=== PATIENT | male | born 1950 | race Caucasian/White ===

== ENCOUNTER 2016-12-11 07:54 | Day surgery (SDC) | payer OTHER, MEDICARE ==
[2016-12-05 11:50] VITALS: BMI 24.4
[2016-12-11] MEDS ORDERED: PROPOFOL 20 ML ONE ×2 (08:04)
[2016-12-11] MEDS ORDERED: LIDOCAINE HCL/PF 2% SDV 5ML VIAL ONE (08:05)
[2016-12-11 09:29] VITALS: TEMP 97.5
[2016-12-11 09:51] VITALS: BP 120/76; PULSE 57
--- NOTE | 2016-12-12 18:15 | PATH ---
Surgical Pathology Report Patient Name: ILIANA RICHMOND [facility]. Rec. #: [id number] /Age/Gender: 1950 (Age: 66) / M Account: [id number] Location: Taken: 12/11/2016 Received: 12/11/2016 Reported: 12/12/2016 Physicians: Angelo Khanna M.D. Specimen(s) Received A: BX ANTRUM B: GASTRIC POLYP Clinical History GERD Gastritis, gastric polyp Final Diagnosis A. ANTRUM, BIOPSY: MILD CHRONIC GASTRITIS. IMMUNOSTAIN IS NEGATIVE FOR H. PYLORI ORGANISMS. B. GASTRIC POLYP, BIOPSY: POLYPOID FRAGMENT OF GASTRIC BODY-TYPE MUCOSA SHOWING MILD CHRONIC GASTRITIS. IMMUNOSTAIN IS NEGATIVE FOR H. PYLORI ORGANISMS Electronically Signed Elinor Mahan M.D. Gross Description A. Received in formalin, labeled "antrum" are 2 heart, irregular portions of soft tissue averaging 0.3 cm. in greatest dimension. The specimens are submitted in toto in one cassette. B. Received in formalin, labeled "gastric polyp" is a heart, polypoid portion of soft tissue measuring 0.5 cm. in greatest dimension. The specimen is submitted in toto in one cassette. 12/11/2016 saudi12/11/2016
== END 2016-12-11 10:05 | disposition home or self-care (01) ==
LOC: FASU-ENDO 07:54
PROVIDERS: ATTEND Internal Medicine Gastroenterology
PROC: 0DB68ZX Excision of Stomach, Via Natural or Artificial Opening Endoscopic, Diagnostic (ICD-10-PCS; principal; 2016-12-11 08:53)
PROC: 0DB98ZX Excision of Duodenum, Via Natural or Artificial Opening Endoscopic, Diagnostic (ICD-10-PCS; 2016-12-11 08:53)
PROC: 0DB68ZX Excision of Stomach, Via Natural or Artificial Opening Endoscopic, Diagnostic (ICD-10-PCS; 2016-12-11 08:53)
DX: Z87.19 Personal history of other diseases of the digestive system (principal); K29.50 Unspecified chronic gastritis without bleeding; K31.7 Polyp of stomach and duodenum
CPT/HCPCS: 88305-TC; 88342-TC

== ENCOUNTER 2019-01-24 17:40 | Inpatient (IN) | payer OTHER, MEDICARE ==
[2019-01-24 18:29] LABS: BASO % 1.1 % (0-2.0); EOS % 0.2 % (0-4.5); HEMATOCRIT 47.6 % (35.4-49); HEMOGLOBIN 16.2 GM/dl (11.7-16.9); LYMPH % 14.7 % (8-40); MCH 30.4 pg (25.7-33.7); MCHC 34.1 g/dl (32.0-35.9); MEAN CELL VOLUME 89.1 fl (80-96); MEAN PLT VOLUME 9.1 fl (7.5-11.1); MONO % 4.1 % (3.8-10.2); NEUT % 79.9 % (42.8-82.8); PLATELET COUNT 139 K/MM3 (134-434); RBC 5.34 M/mm3 (4.00-5.60); RDW 12.9 % (11.9-15.9)
--- NOTE | 2019-01-24 18:32 | PDOC ---
Attending Attestation - Resident Resident Name: TariqEugene - ED Attending Attestation I have performed the following: I have examined & evaluated the patient, The case was reviewed & discussed with the resident, I agree w/resident's findings & plan, Exceptions are as noted - HPI HPI: 01/24/19 18:28 68 years old with past medical history significant for GERD presents to the emergency department with 3-hour history of substernal chest discomfort. Patient states he bent down when he stood up began to feel substernal chest pressure 3 out of 10 mild diaphoresis pain radiates slightly to his back it is not pleuritic does not radiate to jaw or shoulder is now persistent constant with no exacerbating relieving factors with no history of prior. No smoking history no family history no history of cancer recent surgery or travel no PE or DVT history symptoms are mild persistent constant with no exacerbating or alleviating factors. - Physicial Exam PE: 01/24/19 18:29 Vitals: Triage Vital signs reviewed General Appearance: No acute distress, well nourished well developed, Head: Atraumatic, Cardiac: Regular rate and rhythym, no murmurs, no rubs, no gallops, Lungs: Clear to auscultation bilateral, good air movement bilaterally, Abdomen: Soft, non distended, normal bowel sounds, non tender to palpation Extremities: Full range of motion to all extremities, no cyanosis, clubbing, or edema Skin: Warm and dry, no rashes or lesions, no rash, no petechiae Psych: Normal mood, normal affect - Medical Decision Making 01/24/19 18:30 68 years old with substernal chest discomfort EKG performed at 1747 demonstrates normal sinus rhythm [address] elevations or T wave inversions occasional PVCs We will check labs chest x-ray troponin observe and reassess 01/24/19 18:58 Re-evaluation patient's pain feels better almost completely resolved his heart score is 3 We will check a second troponin and treat with Pepcid Maalox observe if patient' s pain worsens patient can be observed overnight Dr. Hood to follow-up labs and dispo patient 01/25/19 14:54 Heart Score/ECG Review - History History: Moderately suspicious - Electrocardiogram EKG: Normal - Age Age: >/= 65 - Risk Factors Based on the list above the patient has:: No risk factors known - Troponin Troponin: </= normal limit - Score Heart Score - Total: 3
[2019-01-24 18:38] LABS: BILIRUBIN,TOTAL 1.4 mg/dl (0.2-1); POTASSIUM 4.1 mmol/L (3.5-5.1); TOT PROT 6.4 g/dl (6.4-8.2)
--- NOTE | 2019-01-24 18:52 | PDOC ---
History of Present Illness - General Chief Complaint: Chest Pain Stated Complaint: chest pain Time Seen by Provider: 01/24/19 17:41 - History of Present Illness Initial Comments: 01/24/19 18:45 68m with pmh of GERD presents with 2 hours of sternal chest pressure 3/10, dull , with some b/l radiation to the back. Never had this kind of pain before. [place] the pain as he bent over to grab something. Was not exerting himself. No SOB, no fever, nausea, vomiting. Seems comfortable. 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 RT) Cardiac Disorders: No CVA: No COPD: No CHF: No Dementia: No Diabetes: No GI Disorders: No (MOTHER DX WITH COLON CA AT 83,3 YRS AGO) Disorders: No HTN: No Hypercholesterolemia: No Liver Disease: No Seizures: No Thyroid Disease: No - Surgical History Abdominal Surgery: No Appendectomy: No Cardiac Surgery: No Cholecystectomy: No Lung Surgery: No Neurologic Surgery: No Orthopedic Surgery: Yes (LARGE TOE JOINT KENDAL) - Psycho Social/Smoking Cessation Hx Smoking History: Never smoked Have you smoked in the past 12 months: No Information on smoking cessation initiated: No Hx Alcohol Use: No Drug/Substance Use Hx: No Substance Use Type: Alcohol Cardiac Specific PMH - Complaint Specific PMHX Pacemaker: No Review of Systems - Review of Systems Able to Perform ROS?: Yes Is the patient limited Surinamese proficient: No Constitutional: No: Symptoms Reported HEENTM: No: Symptoms Reported Respiratory: No: Symptoms reported Cardiac (ROS): Yes: See HPI ABD/GI: No: Symptoms Reported : No: Symptoms Reported Musculoskeletal: No: Symptoms Reported Integumentary: No: Symptoms Reported Neurological: No: Symptoms reported All Other Systems: Reviewed and Negative *Physical Exam - Vital Signs Last Vital Signs Temp Pulse Resp BP Pulse Ox 98.5 F 107 H 20 148/95 99 01/24/19 17:41 01/24/19 17:41 01/24/19 17:41 01/24/19 17:41 01/24/19 17:41 - Physical Exam General Appearance: Yes: Nourished, Appropriately Dressed. No: Apparent Distress HEENT: positive: EOMI, CHALO, Normal ENT Inspection Respiratory/Chest: positive: Lungs Clear, Normal Breath Sounds. negative: Chest Tender, Respiratory Distress Cardiovascular: positive: Regular Rhythm, Regular Rate, S1, S2 Gastrointestinal/Abdominal: positive: Normal Bowel Sounds, Flat, Soft. negative : Tender Extremity: positive: Normal Capillary Refill, Normal Inspection, Normal Range of Motion Integumentary: positive: Normal Color, Dry, Warm Heart Score/ECG Review - History History: Moderately suspicious - Electrocardiogram EKG: Normal - Age Age: >/= 65 - Risk Factors Risk Factors Heart Score: No Hx Hypercholesterolemia, No Hx Hypertension, No Hx Diabetes, No Smoking History, No Positive family hx of cardiac disease, No Hx Obesity Based on the list above the patient has:: No risk factors known - Troponin Troponin: </= normal limit - Score Heart Score - Total: 3 ED Treatment Course - LABORATORY CBC & Chemistry Diagram: 01/24/19 18:15 01/24/19 18:15 - ADDITIONAL ORDERS Additional order review: Laboratory Results 01/24/19 18:15 Sodium 141 Potassium 4.1 Chloride 106 Carbon Dioxide 23 Anion Gap 12 BUN 19.0 H Creatinine 1.0 Est GFR (CKD-EPI)AfAm 87.99 Est GFR (CKD-EPI)NonAf 75.92 Random Glucose 164 H Calcium 9.0 Total Bilirubin 1.4 H AST 37 ALT 36 Alkaline Phosphatase 93 Total Protein 6.4 Albumin 4.0 01/24/19 18:15 RBC 5.34 MCV 89.1 MCHC 34.1 RDW 12.9 MPV 9.1 Neutrophils % 79.9 Lymphocytes % 14.7 Monocytes % 4.1 Eosinophils % 0.2 Basophils % 1.1 Medical Decision Making - Medical Decision Making 01/24/19 18:50 68m with no pmh presents with dull chest pain sternal. Will check EKGm cxr and labs to r/o [place], dissection. Low suspicion for PE as the patient's we'll score is zero. Tachycardia resolved with fluids. Patient agreeable with second set of trop q3h. Explained the risks and benefits of that versus staying overnight for observation. 01/24/19 19:01 Patient signed out to Dr. Jimenez Discharge - Discharge Information Problems reviewed: Yes Clinical Impression/Diagnosis: Chest pain - Follow up/Referral - Patient Discharge Instructions - Post Discharge Activity
[2019-01-24] MEDS ORDERED: FAMOTIDINE 20 MG/50 ML IVPB 20 MG/50 ML MG IVPB ONE ×2 (19:00→19:17)
[2019-01-24] MEDS ORDERED: METOCLOPRAMIDE HCL INJECTION 10 MG/2 ML VIAL IVPUSH ONE (19:00)
[2019-01-24] MEDS ORDERED: MAG HYDROX/AL HYDROX/SIMETH 30 ML UNIT-DOSE CUP PO ONE (19:00)
[2019-01-24] MEDS ORDERED: METOCLOPRAMIDE HCL INJECTION 10 MG/2 ML VIAL ONE (19:17)
[2019-01-24] MEDS ORDERED: MAG HYDROX/AL HYDROX/SIMETH 30 ML UNIT-DOSE CUP ONE (19:17)
--- NOTE | 2019-01-24 21:27 | PDOC ---
*Physical Exam - Vital Signs Last Vital Signs Temp Pulse Resp BP Pulse Ox 98.5 F 76 16 106/57 L 98 01/24/19 17:41 01/24/19 20:09 01/24/19 20:09 01/24/19 20:09 01/24/19 20:09 ED Treatment Course - LABORATORY CBC & Chemistry Diagram: 01/24/19 18:15 01/24/19 18:15 - ADDITIONAL ORDERS Additional order review: Laboratory Results 01/24/19 01/24/19 01/24/19 20:40 18:15 18:15 Sodium 141 Potassium 4.1 Chloride 106 Carbon Dioxide 23 Anion Gap 12 BUN 19.0 H Creatinine 1.0 Est GFR (CKD-EPI)AfAm 87.99 Est GFR (CKD-EPI)NonAf 75.92 Random Glucose 164 H Calcium 9.0 Total Bilirubin 1.4 H AST 37 ALT 36 Alkaline Phosphatase 93 Troponin I 0.07 H < 0.03 Total Protein 6.4 Albumin 4.0 01/24/19 18:15 RBC 5.34 MCV 89.1 MCHC 34.1 RDW 12.9 MPV 9.1 Neutrophils % 79.9 Lymphocytes % 14.7 Monocytes % 4.1 Eosinophils % 0.2 Basophils % 1.1 - Medications Given in the ED: ED Medications Discontinued Medications Generic Name Dose Route Start Last Admin Trade Name Nikolaiq PRN Reason Stop Dose Admin Al Hydroxide/Mg Hydroxide 30 ml 01/24/19 19:00 01/24/19 19:22 Mylanta Oral Suspension - PO 01/24/19 19:01 30 ml ONCE ONE Administration Famotidine/Sodium Chloride 20 mg in 50 mls @ 100 mls/hr 01/24/19 19:00 19:22 Pepcid 20 Mg Premixed Ivpb - IVPB 01/24/19 19:29 100 mls/hr ONCE ONE Administration Metoclopramide HCl 10 mg 01/24/19 19:00 01/24/19 19:28 Reglan Injection - IVPUSH 01/24/19 19:01 10 mg ONCE ONE Administration Medical Decision Making - Medical Decision Making 01/24/19 21:20 Care of this patient received from Patient substernal pain states that he has no further recurrence of his substernal pain or lightheadedness Repeat troponin 0.07 Patient informed that overnight observation, serial enzyme determination and cardiology consultation is warranted considering upward trend of troponin level Patient agrees to the plan. Jacklyn Byrd NP from [facility] service contacted and case discussed with her. Patient was admitted to telemetry observation status ( service) Discharge - Discharge Information Problems reviewed: Yes Clinical Impression/Diagnosis: Chest pain Condition: Guarded - Admission Yes - Follow up/Referral - Patient Discharge Instructions - Post Discharge Activity
[2019-01-24] MEDS ORDERED: ASPIRIN 325 MG ENTERIC COATED TABLET (FP) PO ONE (22:14)
[2019-01-24 22:16] VITALS: BMI 25.7
[2019-01-25] MEDS ORDERED: METOPROLOL TARTRATE 25 MG TABLET (FP) PO ONE (04:51)
[2019-01-25] MEDS ORDERED: ATORVASTATIN CA 80 MG TABLET (FP) PO ONE (04:52)
[2019-01-25] MEDS ORDERED: CLOPIDOGREL BISULFATE 300 MG TABLET PO ONE ×2 (04:53→15:30)
[2019-01-25] MEDS ORDERED: CLOPIDOGREL BISULFATE 75 MG TABLET (FP) PO ONE (05:15)
--- NOTE | 2019-01-25 06:47 | HP ---
CHIEF COMPLAINT: Chest pain PCP: Dr. Casey Gaytan [facility] HISTORY OF PRESENT ILLNESS: 68 year-old male with a PMH significant for GERD presents to the emergency department with 3-hour history of substernal chest discomfort. Patient was seated in his bedroom and bent over to pick something up. He became dizzy, diaphoretic, heart pounding and racing, and felt pain in the mid-chest. He thought he was going to pass out but did not. The pain continued for several hours, and lasted until patient was in the ED. Patient recalls a similar episode a few months ago, again when he bent over at the waist, when he became dizzy, diaphoretic, with chest pain. 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 Smoking: never Alcohol: occasional beer Drugs: no Allergies No Known Drug Allergies Allergy (Verified 01/24/19 17:42) Family history: father unknown; mother HTN; half sister sudden at age 50 cause undetermined; other half siblings a&w HOME MEDICATIONS: Home Medications Medication Instructions Recorded Ibuprofen [Advil -] 600 mg PO ONCE 01/24/19 REVIEW OF SYSTEMS CONSTITUTIONAL: Absent: fever, chills, diaphoresis, generalized weakness, malaise, loss of appetite, weight change HEENT: Absent: rhinorrhea, nasal congestion, throat pain, throat swelling, difficulty swallowing, mouth swelling, ear pain, eye pain, visual changes CARDIOVASCULAR: +dizziness, diaphoresis, palpitations, racing heart, mid-sternal chest pain, near syncope Absent: irregular heart rate, peripheral edema RESPIRATORY: Absent: cough, shortness of breath, dyspnea with exertion, orthopnea, wheezing, stridor, hemoptysis GASTROINTESTINAL: Absent: abdominal pain, abdominal distension, nausea, vomiting, diarrhea, constipation, melena, hematochezia GENITOURINARY: Absent: dysuria, frequency, urgency, hesitancy, hematuria, flank pain, genital pain MUSCULOSKELETAL: Absent: myalgia, arthralgia, joint swelling, back pain, neck pain SKIN: Absent: rash, itching, pallor HEMATOLOGIC/IMMUNOLOGIC: Absent: easy bleeding, easy bruising, lymphadenopathy, frequent infections ENDOCRINE: Absent: unexplained weight gain, unexplained weight loss, heat intolerance, cold intolerance NEUROLOGIC: Absent: headache, focal weakness or paresthesias, dizziness, unsteady gait, seizure, mental status changes, bladder or bowel incontinence PSYCHIATRIC: Absent: anxiety, depression, suicidal or homicidal ideation, hallucinations. PHYSICAL EXAMINATION Vital Signs - 24 hr 01/24/19 01/24/19 01/24/19 17:41 19:05 20:09 Temperature 98.5 F Pulse Rate 107 H Pulse Rate [ 88 76 Right] Respiratory 20 20 16 Rate Blood Pressure 148/95 Blood Pressure 143/74 106/57 L [Left Arm] O2 Sat by Pulse 99 100 98 Oximetry (%) 01/24/19 01/24/19 01/24/19 21:40 22:07 22:38 Temperature 97.9 F 97.8 F Pulse Rate 78 74 Pulse Rate [ 68 Right] Respiratory 16 16 18 Rate Blood Pressure 104/56 L 126/71 Blood Pressure 116/80 [Left Arm] O2 Sat by Pulse 100 96 99 Oximetry (%) 01/25/19 01/25/19 01/25/19 02:00 03:00 05:11 Temperature 98.1 F 97.9 F Pulse Rate 65 63 Pulse Rate [ Right] Respiratory 18 16 Rate Blood Pressure 106/56 L 103/53 L Blood Pressure [Left Arm] O2 Sat by Pulse 98 Oximetry (%) 01/25/19 05:12 Temperature Pulse Rate Pulse Rate [ Right] Respiratory Rate Blood Pressure Blood Pressure [Left Arm] O2 Sat by Pulse 98 Oximetry (%) GENERAL: Awake, alert, and fully oriented, in no acute distress. HEAD: Normal with no signs of trauma. EYES: Pupils equal, round and reactive to light, extraocular movements intact, sclera anicteric, conjunctiva clear. LUNGS: Breath sounds equal, clear to auscultation bilaterally. No wheezes, and no crackles. No accessory muscle use. HEART: Regular rate and rhythm, normal S1 and S2 ABDOMEN: Soft, nontender, not distended MUSCULOSKELETAL: Normal range of motion at all joints. No bony deformities or tenderness. No CVA tenderness. UPPER EXTREMITIES: 2+ pulses, warm, well-perfused. No cyanosis. No clubbing. No peripheral edema. LOWER EXTREMITIES: 2+ pulses, warm, well-perfused. No calf tenderness. No peripheral edema. NEUROLOGICAL: Cranial nerves II-XII intact. Normal speech. Laboratory Results - last 24 hr 01/24/19 01/24/19 01/24/19 18:15 18:15 18:15 WBC 8.0 RBC 5.34 Hgb 16.2 Hct 47.6 MCV 89.1 MCH 30.4 MCHC 34.1 RDW 12.9 Plt Count 139 MPV 9.1 Absolute Neuts (auto) 6.4 Neutrophils % 79.9 Lymphocytes % 14.7 Monocytes % 4.1 Eosinophils % 0.2 Basophils % 1.1 Sodium 141 Potassium 4.1 Chloride 106 Carbon Dioxide 23 Anion Gap 12 BUN 19.0 H Creatinine 1.0 Est GFR (CKD-EPI)AfAm 87.99 Est GFR (CKD-EPI)NonAf 75.92 Random Glucose 164 H Calcium 9.0 Total Bilirubin 1.4 H AST 37 ALT 36 Alkaline Phosphatase 93 Troponin I < 0.03 Total Protein 6.4 Albumin 4.0 01/24/19 01/25/19 20:40 03:00 WBC RBC Hgb Hct MCV MCH MCHC RDW Plt Count MPV Absolute Neuts (auto) Neutrophils % Lymphocytes % Monocytes % Eosinophils % Basophils % Sodium Potassium Chloride Carbon Dioxide Anion Gap BUN Creatinine Est GFR (CKD-EPI)AfAm Est GFR (CKD-EPI)NonAf Random Glucose Calcium Total Bilirubin AST ALT Alkaline Phosphatase Troponin I 0.07 H 0.26 H Total Protein Albumin ASSESSMENT/PLAN: 68 year-old male with a PMH signifcant for GERD. Placed on observation for chest pain. Chest pain Elevated troponin --troponins 0.03-->0.07-->0.26 --serial ECGs: nonspecific ST changes --CXR unremarkable --echo this am --ASA, Plavix, atorvastatin, metoprolol --cardiology consult GERD --protonix FEN Fluids: D5NS@50mL/hr Electrolytes: replete as indicated; K>4, Mg>2 Nutrition: NPO for now DVT prophylaxis: subq lovenox Dispo: continues to require observation - Visit type - Emergency Visit Emergency Visit: Yes ED Registration Date: 01/24/19 Care time: The patient presented to the Emergency Department on the above date and was hospitalized for further evaluation of their emergent condition. - New Patient This patient is new to me today: Yes Date on this admission: 01/25/19 - Critical Care Critical Care patient: No
[2019-01-25 07:10] LABS: BASO % 1.5 % (0-2.0); EOS % 2.5 % (0-4.5); HEMATOCRIT 39.3 % (35.4-49); HEMOGLOBIN 13.4 GM/dl (11.7-16.9); LYMPH % 32.8 % (8-40); MCH 30.5 pg (25.7-33.7); MCHC 34.1 g/dl (32.0-35.9); MEAN CELL VOLUME 89.6 fl (80-96); MEAN PLT VOLUME 10.1 fl (7.5-11.1); MONO % 10.1 % (3.8-10.2); NEUT % 53.1 % (42.8-82.8); PLATELET COUNT 125 K/MM3 (134-434); RBC 4.38 M/mm3 (4.00-5.60); RDW 13.1 % (11.9-15.9)
[2019-01-25 07:19] LABS: ACTIVATED PTT 23.9 SECONDS (25.2-36.5)
[2019-01-25 07:23] LABS: ALBUMIN 3.1 g/dl (3.4-5.0); BILIRUBIN,TOTAL 0.3 mg/dl (0.2-1); CALCIUM 8.3 mg/dl (8.5-10); INR 1.1 (0.82-1.09); MAGNESIUM 1.9 mg/dL (1.8-2.4); POTASSIUM 4.3 mmol/L (3.5-5.1); PROTHROMBIN TIME (PATIENT) 12.3 SEC (10.2-13.0)
[2019-01-25] MEDS ORDERED: DEXTROSE 5%-NORMAL SALINE 1,000 ML IV SCH (07:30)
[2019-01-25] MEDS ORDERED: ATORVASTATIN CA 80 MG TABLET (FP) PO STA (07:36)
[2019-01-25 07:47] LABS: CHOLESTEROL 154 mg/dl (50-200); HDL CHOLESTEROL 56 mg/dl (40-60); LDL CHOLESTEROL (ONLY DFH) 78 mg/dl (5-100); TRIGLYCERIDES 98 mg/dl (0-150)
[2019-01-25] MEDS ORDERED: MAGNESIUM OXIDE 400 MG TABLET (FP) PO ONE (09:00)
[2019-01-25] MEDS ORDERED: PANTOPRAZOLE SODIUM 40 MG VIAL IVPUSH SCH (10:00)
[2019-01-25] MEDS ORDERED: ASPIRIN COATED 81 MG TABLET.EC PO SCH (10:00)
[2019-01-25] MEDS ORDERED: ENOXAPARIN NA (PORCINE) 40 MG/0.4 ML DISP.SYRIN SQ SCH (10:00)
[2019-01-25 10:21] LABS: N-TERMINAL BNP 650.3 pg/ml (5-125)
--- NOTE | 2019-01-25 12:12 | EKG ---
Test Reason : Blood Pressure : / mmHG Vent. Rate : 105 BPM Atrial Rate : 105 BPM P-R Int : 120 ms QRS Dur : 082 ms QT Int : 324 ms P-R-T Axes : 056 068 059 degrees QTc Int : 428 ms SINUS TACHYCARDIA WITH PREMATURE SUPRAVENTRICULAR COMPLEXES AND WITH OCCASIONAL PREMATURE VENTRICULAR COMPLEXES NONSPECIFIC ST ABNORMALITY ABNORMAL ECG NO PREVIOUS ECGS AVAILABLE Confirmed by Jimenez Oconnor MD ([id number]) on 01/25/2019 12:11:40 PM Referred By: Confirmed By:Jimenez Oconnor MD
--- NOTE | 2019-01-25 14:47 | ECHO ---
Name: ILIANA RICHMOND Exam:Adult Echocardiogram Study Date: 01/25/2019 01:29 PM Age: 68 yrs Reason For Study: Chest pain Height: 70 in Weight: 190 lb BSA: 2.0 m2 MMode/2D Measurements & Calculations IVSd: 1.0 cm Ao root diam: 3.1 cm LVIDd: 4.6 cm LA dimension: 3.5 cm LVIDs: 3.2 cm LVPWd: 1.1 cm EDV(Teich): 99.4 ml LVOT diam: 2.0 cm ESV(Teich): 41.1 ml Doppler Measurements & Calculations MV E max graciela: 81.6 cm/sec MV A max graciela: 69.0 cm/sec MV dec slope: 430.4 cm/sec2 MV E/A: 1.2 Ao V2 max: 132.2 cm/sec LV V1 max P.1 mmHg Ao max P.0 mmHg LV V1 max: 101.4 cm/sec ERNESTO(V,D): 2.4 cm2 TR max graciela: 213.9 cm/sec PA V2 max: 97.7 cm/sec TR max P.3 mmHg PA max P.3 mmHg PI end-d graciela: 87.7 cm/sec Procedure A two-dimensional transthoracic echocardiogram with color flow and Doppler was performed. The patient was in normal sinus rhythm during the exam. Left Ventricle The left ventricular size, thickness and function are normal. Ejection Fraction = 55%. Left Ventricul ar Filling pattern is normal for age. Right Ventricle The right ventricle is not well visualized. Atria Normal left and right atrial size and function. Mitral Valve The mitral valve is grossly normal. There is trace mitral regurgitation. Tricuspid Valve The tricuspid valve is not well visualized, but is grossly normal. There was insufficient TR detected to calculate RV systolic pressure. Aortic Valve The aortic valve is normal in structure and function. No hemodynamically significant valvular aortic stenosis. Pulmonic Valve The pulmonic valve is not well visualized. Great Vessels The aortic root is normal size. Pericardium/Pleura There is no pericardial effusion. Interpretation Summary The left ventricular size, thickness and function are normal The right ventricle is not well visualized. Normal left and right atrial size and function. There is trace mitral regurgitation. There was insufficient TR detected to calculate RV systolic pressure. No hemodynamically significant valvular aortic stenosis. MD Owen Barnes 01/25/2019 02:46 PM
--- NOTE | 2019-01-25 15:15 | CON.CARD ---
Consult Consult Specialty:: Cardiology Referred by:: Miki Byrd - History of Present Illness Chief Complaint: chest pain History of Present Illness: 68M GERD, remote hx prostate CA s/p prostatectomy presents with 2 hour episode of sscp/pressure associated with diaphoresis and dizziness. CXR clear. tnI mildly/borderline + ECGs reviewed: nonspecific ST/T wave changes. O2 sat normal. Echo nl EF, no effusion. Patient was feeling tired prior to episode. No SOB. No PND, no orthopnea. No fever, chills cough. No recent travel Sister suddenly in her 50s- cause unknown but suspected VA. - History Source History Provided By: Patient - Past Medical History Cardio/Vascular: No: AFIB, Aneurysm, Aortic Insufficiency, Aortic Stenosis, CAD , CHF, Deep Vein Thrombosis, HTN, Hyperlipdemia, VA, Mitral Insufficiency, Mitral Stenosis, Murmur, Pulmonary Hypertension, Other Pulmonary: No: Asthma, Bronchitis, Cancer, COPD, O2 Dependent, Pneumonia, Previously Intubated, Pulmonary Embolus, Pulmonary Fibrosis, Sleep Apnea, Other Gastrointestinal: Yes: GERD Hepatobiliary: No: Cirrhosis, Cholelithiasis, Cholecystitis, Choledocholithiasis , Hepatitis A, Hepatitis B, Hepatitis C, Other Renal/: No: Renal Failure, Renal Inusuff, BPH, Cancer, Hematuria, Hemodialysis , Neurogenic Bladder, Renal Calculi, UTI, Other Heme/Onc: Yes: Other (Prostate CA) Infectious Disease: No: AIDS, C-Diff, Herpes Zoster, HIV, MRSA, STD's, Tuberculosis, VREF, Other Psych: No: Addictions, Anxiety, Bipolar, Depression, Panic, Psychosis, Schizophrenia, Other Musculoskeletal: No: Bursitis, Chronic low back pain, Hemiparesis, Hemiplegia, Osteoarthritis, Paraplegia, Other Rheumatology: No: Fibromyalgia, Gout, Lupus, Rheumatoid Arthritis, Sarcoidosis, Vasculitis, Other ENT: No: Allergic Rhinitis, Sinusitis, Other - Past Surgical History Additional Surgical History: Prostatectomy - Alcohol/Substance Use Hx Alcohol Use: No (OCCASIONAL) - Smoking History Smoking history: Never smoked Have you smoked in the past 12 months: No - Social History Usual Living Arrangement: With Spouse History of Recent Travel: No Home Medications - Allergies Allergies/Adverse Reactions: Allergies Allergy/AdvReac Type Severity Reaction Status Date / Time No Known Drug Allergies Allergy Verified 01/24/19 17:42 - Home Medications Home Medications: Ambulatory Orders Ibuprofen [Advil -] 600 mg PO ONCE 01/24/19 Family Medical History Family History: Unremarkable (see HPI) Review of Systems Findings/Remarks: see HPI - Review of Systems Constitutional: reports: No Symptoms Eyes: reports: No Symptoms HENT: reports: No Symptoms Neck: reports: No Symptoms Cardiovascular: reports: Chest Pain Respiratory: reports: Exercise Intolerance Gastrointestinal: denies: No Symptoms, Abdominal Pain, Bloating, Constipation, Diarrhea, Dysphagia, Indigestion, Melena, Nausea, Rectal Bleeding, Vomiting, Vomiting Blood, Other Genitourinary: denies: No Symptoms, Burning, Discharge, Dysuria, Flank Pain, Frequency, Hematuria, Incontinence, Lesions, Menses, Pain, Testicular Mass, Testicular Pain, Testicular Swelling, Urgency, Vaginal Bleeding, Other Breasts: denies: No Symptoms Reported, See HPI, Breast Implants, Discharge from Nipple, Lumps, Pain, Skin Changes, Other Musculoskeletal: denies: No Symptoms, Back Pain, Crepitus, Decreased ROM, Extremity Pain, Joint Pain, Joint Swelling, Muscle Pain, Muscle Cramps, Muscle Weakness, Other Integumentary: denies: No Symptoms, Blister, Bruising, Change in Color, Eczema, Erythema, Incision, Lesions, Lump, Pallor, Pruritis, Rash, Wound, Other Neurological: denies: No Symptoms, Change in LOC, Change in Speech, Confusion, Dizziness, Headache, Incoordination, Numbness, Parasthesia, Pre-Existing Deficit , Seizure, Syncope, Tremors, Unsteady Gait, Weakness, Other Endocrine: denies: No Symptoms, Excessive Sweating, Flushing, Increased Hunger, Increased Thirst, Intolerance to Cold, Intolerance to Heat, Unexplained Weight Gain, Unexplained Weight Loss, Other Hematology/Lymphatic: denies: No Symptoms, Easily Bruised, Excessive Bleeding, Swollen Glands, Other Psychiatric: denies: No Symptoms, Altered Sleep Pattern, Anxiety, Depression, Hallucinations, Panic, Paranoia, Suicidal, Other Vital Signs: Vital Signs Temperature 98.5 F 01/25/19 14:40 Pulse Rate 74 01/25/19 14:40 Respiratory Rate 18 01/25/19 14:40 Blood Pressure 123/54 L 01/25/19 14:40 O2 Sat by Pulse Oximetry (%) 96 01/25/19 14:40 Constitutional: Yes: No Distress, Calm Eyes: Yes: Conjunctiva Clear, EOM Intact HENT: Yes: Atraumatic, Normocephalic Neck: Yes: Trachea Midline Respiratory: Yes: CTA Bilaterally Gastrointestinal: Yes: Soft (NT, no rebound or guarding.) Cardiovascular: Yes: Regular Rate and Rhythm JVD: No Carotid Bruit: No PMI: Non-Displaced Heart Sounds: Yes: S1, S2 (rrr, no m/r/g) Edema: No Peripheral Pulses WNL: Yes Neurological: Yes: Alert, Oriented ...Motor Strength: WNL - Other Data Labs, Other Data: CBC, BMP 01/25/19 07:00 01/25/19 07:00 INR, PTT INR 1.10 (0.82-1.09) 01/25/19 07:00 Troponin, BNP 01/24/19 01/24/19 01/25/19 18:15 20:40 03:00 Troponin I < 0.03 0.07 H 0.26 H B-Natriuretic Peptide 01/25/19 01/25/19 07:00 09:30 Troponin I 0.12 H B-Natriuretic Peptide 650.3 H Troponin, BNP 01/24/19 01/24/19 01/25/19 18:15 20:40 03:00 Troponin I < 0.03 0.07 H 0.26 H B-Natriuretic Peptide 01/25/19 01/25/19 07:00 09:30 Troponin I 0.12 H B-Natriuretic Peptide 650.3 H Echo: Report Reviewed Ejection Fraction %: LVEF > or = 40 % Imaging - Results Chest X-ray: Image Reviewed EKG: Image Reviewed Assessment/Plan IMP: Symptoms c/w UA, possible mild NSTEMI REC: 1. To continue tele 2. ASA daily 3. Plavix load should be 600mg, will dose additional 300mg 4. Continue beta ty and high intensity statin 5. Will d/w Interventional Cardiology at [place] re transfer for cath.
[2019-01-25] MEDS ORDERED: HEPARIN NA (PORCINE) 5,000 UNITS/ML 1ML VIAL IVPUSH PRN ×2 (15:58)
[2019-01-25] MEDS ORDERED: HEPARIN INFUSION - 25,000 UNITS/500 ML INFUS.BAG IVPB SCH (16:00)
--- NOTE | 2019-01-25 16:17 | DS ---
Physical Exam: SUBJECTIVE: Patient seen and examined OBJECTIVE: Vital Signs Period Temp Pulse Resp BP Sys/Jasso Pulse Ox Last 24 Hr 97.8 F-98.5 F 63-107 16-20 103-148/53-95 95-100 PHYSICAL EXAM GENERAL: The patient is awake, alert, and fully oriented, in no acute distress. HEAD: Normal with no signs of trauma. EYES: PERRL, extraocular movements intact, sclera anicteric, conjunctiva clear. ENT: Ears normal, nares patent, oropharynx clear without exudates, moist mucous membranes. NECK: Trachea midline, full range of motion, supple. LUNGS: Breath sounds equal, clear to auscultation bilaterally, no wheezes, no crackles, no accessory muscle use. HEART: Regular rate and rhythm, S1, S2 without murmur, rub or gallop. ABDOMEN: Soft, nontender, nondistended, normoactive bowel sounds, no guarding, no rebound, no hepatosplenomegaly, no masses. EXTREMITIES: 2+ pulses, warm, well-perfused, no edema. NEUROLOGICAL: Cranial nerves II through XII grossly intact. Normal speech, gait not observed. PSYCH: Normal mood, normal affect. SKIN: Warm, dry, normal turgor, no rashes or lesions noted. LABS Laboratory Results - last 24 hr 01/24/19 01/24/19 01/24/19 18:15 18:15 18:15 WBC 8.0 RBC 5.34 Hgb 16.2 Hct 47.6 MCV 89.1 MCH 30.4 MCHC 34.1 RDW 12.9 Plt Count 139 MPV 9.1 Absolute Neuts (auto) 6.4 Neutrophils % 79.9 Lymphocytes % 14.7 Monocytes % 4.1 Eosinophils % 0.2 Basophils % 1.1 PT with INR INR PTT (Actin FS) Sodium 141 Potassium 4.1 Chloride 106 Carbon Dioxide 23 Anion Gap 12 BUN 19.0 H Creatinine 1.0 Est GFR (CKD-EPI)AfAm 87.99 Est GFR (CKD-EPI)NonAf 75.92 Random Glucose 164 H Calcium 9.0 Magnesium Total Bilirubin 1.4 H AST 37 ALT 36 Alkaline Phosphatase 93 Creatine Kinase Creatine Kinase Index CK-MB (CK-2) Troponin I < 0.03 B-Natriuretic Peptide Total Protein 6.4 Albumin 4.0 Triglycerides Cholesterol Total LDL Cholesterol HDL Cholesterol Lipase TSH 01/24/19 01/25/19 01/25/19 20:40 03:00 06:55 WBC RBC Hgb Hct MCV MCH MCHC RDW Plt Count MPV Absolute Neuts (auto) Neutrophils % Lymphocytes % Monocytes % Eosinophils % Basophils % PT with INR INR PTT (Actin FS) Sodium Potassium Chloride Carbon Dioxide Anion Gap BUN Creatinine Est GFR (CKD-EPI)AfAm Est GFR (CKD-EPI)NonAf Random Glucose Calcium Magnesium Total Bilirubin AST ALT Alkaline Phosphatase Creatine Kinase Creatine Kinase Index CK-MB (CK-2) Troponin I 0.07 H 0.26 H B-Natriuretic Peptide Total Protein Albumin Triglycerides 98 Cholesterol 154 Total LDL Cholesterol 78 HDL Cholesterol 56 Lipase TSH 01/25/19 01/25/19 01/25/19 07:00 07:00 07:00 WBC 6.0 RBC 4.38 Hgb 13.4 Hct 39.3 D MCV 89.6 MCH 30.5 MCHC 34.1 RDW 13.1 Plt Count 125 L MPV 10.1 D Absolute Neuts (auto) 3.1 Neutrophils % 53.1 D Lymphocytes % 32.8 D Monocytes % 10.1 D Eosinophils % 2.5 D Basophils % 1.5 PT with INR 12.3 INR 1.10 PTT (Actin FS) 23.9 L Sodium 140 Potassium 4.3 Chloride 108 H Carbon Dioxide 28 Anion Gap 4 L BUN 18.0 Creatinine 1.0 Est GFR (CKD-EPI)AfAm 87.99 Est GFR (CKD-EPI)NonAf 75.92 Random Glucose 92 Calcium 8.3 L Magnesium 1.9 Total Bilirubin 0.3 AST 23 ALT 25 Alkaline Phosphatase 81 D Creatine Kinase Creatine Kinase Index CK-MB (CK-2) Troponin I B-Natriuretic Peptide 650.3 H Total Protein 5.0 L Albumin 3.1 L Triglycerides Cholesterol Total LDL Cholesterol HDL Cholesterol Lipase 265 TSH 2.28 01/25/19 01/25/19 01/25/19 09:30 10:58 15:00 WBC RBC Hgb Hct MCV MCH MCHC RDW Plt Count MPV Absolute Neuts (auto) Neutrophils % Lymphocytes % Monocytes % Eosinophils % Basophils % PT with INR INR PTT (Actin FS) Sodium Potassium Chloride Carbon Dioxide Anion Gap BUN Creatinine Est GFR (CKD-EPI)AfAm Est GFR (CKD-EPI)NonAf Random Glucose Calcium Magnesium Total Bilirubin AST ALT Alkaline Phosphatase Creatine Kinase 175 Creatine Kinase Index 1.9 CK-MB (CK-2) 3.4 Troponin I 0.12 H 0.07 H B-Natriuretic Peptide Total Protein Albumin Triglycerides Cholesterol Total LDL Cholesterol HDL Cholesterol Lipase TSH 01/25/19 15:00 WBC RBC Hgb Hct MCV MCH MCHC RDW Plt Count MPV Absolute Neuts (auto) Neutrophils % Lymphocytes % Monocytes % Eosinophils % Basophils % PT with INR INR PTT (Actin FS) Sodium Potassium Chloride Carbon Dioxide Anion Gap BUN Creatinine Est GFR (CKD-EPI)AfAm Est GFR (CKD-EPI)NonAf Random Glucose Calcium Magnesium Total Bilirubin AST ALT Alkaline Phosphatase Creatine Kinase 161 Creatine Kinase Index 1.6 CK-MB (CK-2) 2.6 Troponin I B-Natriuretic Peptide Total Protein Albumin Triglycerides Cholesterol Total LDL Cholesterol HDL Cholesterol Lipase TSH HOSPITAL COURSE: Date of Admission:01/24/19 Date of Discharge: 01/25/19 Pre hospital course 68 year-old male with a PMH significant for prostate cancer s/p prostatectomy ( remote) and GERD. Presented to the emergency department with 3-hour history of substernal chest discomfort. Patient was seated in his bedroom and bent over to pick something up. He became dizzy, diaphoretic, heart pounding and racing, and felt pain in the mid-chest. He thought he was going to pass out but did not. The pain continued for several hours, and lasted until patient was in the ED. Patient recalls a similar episode a few months ago, again when he bent over at the waist, when he became dizzy, diaphoretic, with chest pain. ER course (1) Troponins 0.03-->0.07-->0.26 (2) ECG:nonspecific ST changes Subsequent hospital course Chest pain Elevated troponin --troponins 0.03-->0.07-->0.26-->0.12-->0.07 --serial ECGs: nonspecific ST changes --CXR unremarkable --Echo: LV normal, EF 55%; RV not well-visualized; trace MR --ASA 325mg x 1, 81mg daily --Plavix 600 mg x 1, 75mg daily --atorvastatin 80mg daily --metoprolol 12.5mg daily --heparin drip started, no bolus dose --seen and evaluated by Dr. Peter, will transfer to [facility] for cardiac cath tonight Minutes to complete discharge: 35 Discharge Summary Problems reviewed: Yes Reason For Visit: chest pain Current Active Problems Chest pain (Acute) Condition: Stable - Instructions Disposition: TRANSFER ACUTE CARE/OTHER HOSP - Home Medications Comprehensive Discharge Medication List: Ambulatory Orders Aspirin Coated [Ecotrin -] 81 mg PO DAILY tablet.ec 01/25/19 Atorvastatin Ca [Lipitor] 80 mg PO DAILY tablet 01/25/19 Clopidogrel Bisulfate [Plavix -] 75 mg PO DAILY tablet 01/25/19 Heparin - 1,000 unit IVPUSH PRN PRN vial 01/25/19 Heparin - 5,000 unit IVPUSH PRN PRN vial 01/25/19 Metoprolol Tartrate [Lopressor -] 12.5 mg PO BID tablet 01/25/19 Pantoprazole Sodium [Protonix -] 40 mg PO DAILY tablet.ec 01/25/19 This patient is new to me today: Yes Date on this admission: 01/25/19 Emergency Visit: Yes ED Registration Date: 01/24/19 Care time: The patient presented to the Emergency Department on the above date and was hospitalized for further evaluation of their emergent condition. Critical Care patient: No - Discharge Referral Referred to [facility] No
[2019-01-25 19:19] VITALS: TEMP 98.4
[2019-01-25 20:17] VITALS: BP 138/78; PULSE 65
[2019-01-25] MEDS ORDERED: METOPROLOL TARTRATE 25 MG TABLET (FP) PO SCH (22:00)
[2019-01-26] MEDS ORDERED: CLOPIDOGREL BISULFATE 75 MG TABLET (FP) PO SCH (10:00)
[2019-01-26] MEDS ORDERED: PANTOPRAZOLE 40 MG TABLET (FP) PO SCH (10:00)
[2019-01-26] MEDS ORDERED: ATORVASTATIN CA 80 MG TABLET (FP) PO SCH (10:00)
== END 2019-01-25 23:15 | disposition short-term general hospital (02) | DRG 311 ==
LOC: FER 17:40 → FM/S 21:47 → OBSVTOIN 01-25 22:39
PROVIDERS: ADMIT Internal Medicine; ATTEND Internal Medicine
DX: I20.0 Unstable angina (principal); R07.89 Other chest pain; R77.8 Other specified abnormalities of plasma proteins; K21.9 Gastro-esophageal reflux disease without esophagitis; Z85.46 Personal history of malignant neoplasm of prostate; R00.0 Tachycardia, unspecified
CPT/HCPCS: 36415; 71045-TC-FY; 80053; 80061; 82550; 82553; 83690; 83735; 83880; 84443; 84484; 85025; 85610; 85730; 93005; 93306-TC; 99285-25; G0378; J1644